=== PATIENT | female | born 1960 | race Caucasian/White ===

== ENCOUNTER 2024-08-16 05:15 | Emergency (ER) | payer MEDICAID ==
[~2024-08-16] VITALS: Ht 167.6 cm; Wt 109.7 kg
[2024-08-16 05:18] VITALS: TEMP 97.6
[2024-08-16 05:36] VITALS: BP 178/86; PULSE 83; RESP 16; O2SAT 96
[2024-08-16] MEDS ORDERED: AMOX500C2 PO (05:53)
[2024-08-16] MEDS ORDERED: KETO10PO3 TOP (05:53)
[2024-08-16] MEDS ORDERED: CLIN-214 PO (06:24)
[2024-08-16] MEDS: amoxicillin 250mg capsule PO ONE (06:26)
[2024-08-16] MEDS: clindamycin 150mg capsule PO ONE (06:45)
== END 2024-08-16 06:57 | disposition home or self-care (01) ==
LOC: ER 05:15
DX: J32.9 Chronic sinusitis, unspecified (principal); Z88.8 Allergy status to other drugs, medicaments and biological substances
CPT/HCPCS: 99283

== ENCOUNTER 2025-01-04 15:34 | Inpatient (IN) | payer MEDICAID ==
[~2025-01-04] VITALS: Ht 162.6 cm; Wt 129.7 kg
[~2025-01-04 15:34] MED LIST: CLIN-214 PO; KETO10PO3 TOP
--- NOTE | 2025-01-04 16:11 | ELECTROCARDIOGRAPH REPORT ---
[facility] Test Date: 2025-01-04 Test Time: 16:09:03 Pat Name: VAISHALI ALONZO Department: EMERGENCY ROOM Room: Gender: F Property Management Supervisor: JEOVANNY : 1960 Requested By: CODY LONG Order Number: [id number] Reading MD: Measurements Intervals [place] Rate: 100 P: 48 WY: 151 QRS: -10 QRSD: 95 T: 14 QT: 318 QTc: 411 Interpretive Statements Sinus tachycardia Anterolateral infarct, old Baseline wander in lead(s) I,III,aVL,V2,V3 Please click the below link to view image of tracing.
[2025-01-04 16:37] LABS: MEAN PLATELET VOLUME 8.9 FL (7.4-10.4); RED CELL DISTRIBUTION WIDTH 15.8 % (11.5-14.5)
[2025-01-04 16:58] LABS: CREATININE 1.03 MG/DL (0.40-0.90); PRO BRAIN NATRIURETIC PEPTIDE 59 PG/ML (0-125); TOTAL CARBON DIOXIDE 26.2 MMOL/L (24-32); eCRCL 49 ML/MIN; eGFR 54 ML/MIN
--- NOTE | 2025-01-04 17:36 | RADIOLOGY REPORT ---
EXAM: DI CHEST,SINGLE VIEW TECHNIQUE: Single frontal chest radiograph CLINICAL HISTORY: CP COMPARISON: None Findings/Impression: Frontal chest radiograph demonstrates no acute osseous or superficial soft tissue abnormalities. The trachea is midline. The cardiac silhouette and mediastinum are within normal limits. No pneumothorax, pleural effusions, or consolidations.
--- NOTE | 2025-01-04 21:03 | Physician Documentation ---
History of Present Illness ~ Chief Complaint: See Chief Complaint Stated Complaint: SEE CHIEF COMPLAINT Time Seen by MD: 20:31 Mode of Arrival: Dropped Off HPI 64-year-old female who presents with leg swelling and rashes The patient is a challenging historian, but reports having acutely worsening chronic leg swelling. She also reports having a painful red rash in multiple areas of her leg. This includes over both lateral thighs in the medial right thigh. She also has a large blister that is draining over the back of her right leg. She also has a wound over the back of her left heel. She reports having subjective fevers and chills. She denies any abdominal pain, vomiting or diarrhea. She does report intermittent dysuria. She shows me a paper, it shows she had been prescribed multiple antibiotics and Lasix in the past. However she tells me she did not take any of these med ications because she was worried there would be interactions. She is currently homeless. Tetanus witin 5 years: Yes Medication Reconciliation Allergies: Coded Allergies: niacin (Verified Allergy, Mild, HOT FLASHES, 01/04/25) Uncoded Allergies: CILLINS (Allergy, Mild, HOT FLASHES, 08/16/24) Discontinued Medications Clindamycin HCl (Clindamycin HCl CAPSULE), 2 CAP PO TID Discontinued Reason: patient no longer taking Ketoconazole (Ketoconazole), 1 APPLIC TOP BID Discontinued Reason: patient no longer taking Review of Systems Constitutional: Reports: chills, fever Integumentary: Reports: rash Physical Exam Vital Signs: Temperature: 98.2, Source: Temporal, Heart Rate: 103, Respiratory Rate: 14, BP: 165/103, Pulse Oximetry: 96, Weight: 129.700 Physical Exam General: This is a pleasant and mildly anxious appearing middle-aged woman, not in distress HEENT: Atraumatic, oropharynx is moist Heart: Mild tachycardic, appears regular Lungs: normal work of breathing, normal oxygen saturation on room air Extremities: Lower extremities: The patient has significant pitting edema to both lower extremities. She has multiple scabbed wounds scattered over her legs. She has large areas of beefy red erythema that is warm and blanching, very tender to the touch. This includes over the lateral right and left thighs, as well as a large patch over the medial right thigh extending down the back of the leg. She has a large blister over the back of the leg. She is draining clear fluid from her legs. Neuro: Alert and oriented, no focal deficits Psychiatric: Appears mildly anxious but is cooperative with exam Progress Results/Orders Results/Orders Orders - TISH QUINN MD Culture Blood (01/04/25 20:58) Page Hospitalist (01/04/25 21:52) Completed Orders - TISH QUINN MD LA (01/04/25 20:58) Furosemide Inj (Lasix Inj) (01/04/25 21:35) Medications Received in ER Medications (Trade) Dose Ordered Sig/Cortney Route PRN Reason Start Time Stop Time Status Last Admin Dose Admin (Lasix inj) 60 mg ONCE ONCE IV 01/04/25 21:35 01/04/25 21:36 DC 01/04/25 22:53 60 MG Sodium Chloride 1,000 ml @ 100 mls/hr Q10H IV 01/04/25 23:25 01/05/25 00:13 100 MLS/HR Vital Signs 01/04/25 01/04/25 01/04/25 15:48 18:52 19:35 Temp 100.5 98.2 Pulse 103 103 Resp 18 16 14 B/P (MAP) 160/90 165/103 (123) Pulse Ox 95 96 Laboratory Tests Test 01/04/25 16:15 01/04/25 18:02 01/04/25 21:10 White Blood Count 14.9 H Red Blood Count 4.87 Hemoglobin 12.9 Hematocrit 39.4 Mean Corpuscular Volume 80.8 Mean Corpuscular Hemoglobin 26.5 L Mean Corpuscular Hemoglobin Concent 32.7 L Red Cell Distribution Width 15.8 H Platelet Count 235 Mean Platelet Volume 8.9 Neutrophils (%) (Auto) 85.8 H Lymphocytes (%) (Auto) 7.9 L Monocytes (%) (Auto) 5.4 Eosinophils (%) (Auto) 0.6 Basophils (%) (Auto) 0.3 Neutrophils # (Auto) 12.8 H Lymphocytes # (Auto) 1.2 Monocytes # (Auto) 0.8 Eosinophils # (Auto) 0.1 Basophils # (Auto) 0.0 CBC Comment Sodium Level 133 L Potassium Level 3.3 L Chloride Level 100 Carbon Dioxide Level 26.2 Anion Gap 7 L Blood Urea Nitrogen 13 Creatinine 1.03 H Estimated GFR/1.73 m2 54 BUN/Creatinine Ratio 12.6 Glucose Level 113 H Hemoglobin A1c 6.2 Calcium Level 8.6 Troponin I High Sensitivity 4 < 4 L Pro-B-Type Natriuretic Peptide 59 Albumin 2.6 L Procalcitonin 1.38 H Chemistry Comments Troponin I High Sens Percent Delta Troponin I Hi Sens Absolute Change Lactic Acid Level 1.3 Microbiology Date/Time Source Procedure Growth Status 01/04/25 21:51 Blood Arm Right Blood Culture - Preliminary NEGATIVE (LESS THAN 24 HOURS) Resulted Consults/PCP Consults/PCP : Additional Comment Consult: I spoke to the internal medicine service, for admission in the hospital Medical Decision Making Additional Comment Differential includes cellulitis, fungal infection, drug rash, dehydration, sepsis, lymphedema, CHF, UTI Assessment The patient presents with significant lower extremity edema as well as a painful rash on her legs. On exam she has findings concerning for cellulitis or other significant infection to her legs. Her workup was otherwise unrevealing, no evidence of congestive heart failure or primary heart related problem. Blood cu ltures are pending. She will be given IV Lasix and admitted to the medicine service for IV antibiotics and further treatment. Departure Impression: Primary Impression: Bilateral lower extremity edema Additional Impression: Cellulitis, leg Referrals: NO PRIMARY CARE PROVIDER (PCP) Signature Scribe Signature: na Attestation: TISH Khan MD Jan 04, 2025 21:03
[2025-01-04] MEDS: furosemide 10 MG/1 ML 10ml inj IV ONE (22:53)
[2025-01-04] MEDS ORDERED: magnesium sulf-water 2g/50mL 50 ML IV PRN (23:25)
[2025-01-04] MEDS ORDERED: ondansetron/PF 4mg/2ml inj IV PRN (23:25)
[2025-01-04] MEDS ORDERED: magnesium Cl slow-release 64mg tablet PO PRN (23:25)
[2025-01-04] MEDS ORDERED: potassium Cl 40MEQ/1/2NS 520ml 520 ML IV PRN (23:25)
[2025-01-04] MEDS ORDERED: magnesium hydroxide 30ml (MOM) UD suspension PO PRN (23:25)
[2025-01-04] MEDS ORDERED: magnesium sulf-water 4G/100mL 100 ML IV PRN (23:25)
[2025-01-04] MEDS ORDERED: mag hydrox/Alum hydrox/simeth 30ml oral suspension PO PRN (23:25)
[2025-01-04] MEDS ORDERED: potassium Cl 20 mEq SR tablet PO PRN (23:25)
--- NOTE | 2025-01-04 23:38 | HISTORY AND PHYSICAL-Residence ---
History & Physical Providers to CC Resident Creating Document: MAX MACHUCA RES ~ History of Present Illness Reason for Admit\Complaint: Bilateral lower extremity cellulitis-worse in the right History of Present Illness This 64-year-old female presented to the ER with a chief concern of worsening bilateral lower extremity wounds. She lives with her in a truck. States that she had multiple wound infections in the past but has never used any medications for it. Usually feels itchy, she scratches and develops infections but later self-resolves. But, this time she has wounds on her bilateral legs and also significant erythema on her posterior surface of right thigh with a 2 cm in diameter big blister which is tender to touch. She also has erythema on her left thigh but not as significant as the right. Also complains of fever with chills that she noticed today. So, came to the ER. Denies any nausea, vomiting, chest pain, shortness of breath, constipation or diarrhea, dysuria. States that she only gets erythematous lesions in her bilateral inguinal region, and also in her inframammary creases. Never used any medications or topical antifungals for it. States that she used some homeopathic spray for it. Denies any history of IV drug abuse. Denies taking any medications at home. She is not a very good historian. Allergies: Coded Allergies: niacin (Verified Allergy, Mild, HOT FLASHES, 01/04/25) Uncoded Allergies: CILLINS (Allergy, Mild, HOT FLASHES, 08/16/24) Home Medications Home Medications Active Past Medical History Past Medical History Denies any past medical history and denies using any medications at home Past Surgical History Surgical History Comment Denies any surgical history Past Social History Social History Comment States that she quit smoking about 20 years back smoked about half to one pack of cigarettes per day for few years. Occasionally drinks alcohol. Denies abusing any other recreational drugs. ROS ROS Constitutional: Fever with chills present. No dizziness, weakness, weight gain or loss Eyes: No pain, erythema, discharge, blurring of vision ENT: No sore throat, epistaxis, tinnitus Cardiovascular: No chest pain, chest pressure, chest discomfort, palpitations, syncope, lower extremity edema, paroxysmal nocturnal dyspnea Respiratory: No shortness of breath, cough, hemoptysis Gastrointestinal: Normal appetite. No nausea, vomiting, diarrhea, constipation, hematemesis, abdominal pain, bloating, melena or fresh blood Genitourinary: No frequency, urgency, nocturia, hematuria or dysuria Musculoskeletal: No arthralgias or myalgias Integumentary: Significant bilateral lower extremity edema. Erythema, tenderness on bilateral medial thighs. Significant erythema in the posterior surface of right thigh with multiple small blisters and also one big blister- about 2 cm in diameter. Also has about 0.5 cm in diameter circular superficial ulcers on bilateral lower legs. Neurologic: No headache, neck pain, numbness or tingling of the extremities, weakness Psychiatric: No delusions, depression, loss of interest in normal activity or change in sleep pattern, hallucinations, suicidal ideations Endocrine: No fatigue, weakness, polydipsia, polyuria, change in appetite, heat or cold intolerance, sweating, dry skin Hematological: No bleeding, petechiae, bruising Allergies: No asthma or urticaria Constitutional: Reports: chills, fever Integumentary: Reports: rash Exam Vitals: Vital Signs Date Time Temp Pulse Resp B/P (MAP) Pulse Ox O2 Delivery O2 Flow Rate FiO2 01/04/25 19:35 14 01/04/25 18:52 98.2 103 96 General: Alert and oriented x4 HEENT: Normocephalic and atraumatic. Pupils equal round reactive to light and accommodation. Extraocular movements intact. Oral and nasal mucosa moist Neck: Trachea is in midline. No masses or JVD Chest: Bilateral normal breath sounds. No crackles, rhonchi or wheezes. Mild erythema in the inframammary creases Cardiovascular: Regular rate and rhythm. S1-S2 normal. No rubs or murmurs Abdomen: Soft, nontender nondistended. Bowel sounds present. Extremities: Significant bilateral lower extremity edema. Erythema, tenderness on bilateral medial thighs. Significant erythema in the posterior surface of right thigh with multiple small blisters and also one big blister-about 2 cm in diameter. Also has about 0.5 cm in diameter circular superficial ulcers on bilateral legs. Bilateral 3+ pedal edema. No cyanosis or clubbing Central Nervous System: No gross sensory or motor deficits. CN II to XII grossly intact Skin: Erythema, tenderness on bilateral medial thighs. Significant erythema in the posterior surface of right thigh with multiple small blisters and also one big blister-about 2 cm in diameter. Also has about 0.5 cm in diameter circular superficial ulcers on bilateral legs Diagnostic Data Last Recorded Lab Results: 01/04/25 1615 01/04/25 161 Advance Care Planning Advanced Care plannin - 30 Minutes Additional Plan Sepsis secondary to Bilateral lower extremity cellulitis-worse in the right Multiple blisters with a big blister on the posterior surface of right thigh Elevated WBC, fever ER physician give 60 mg IV Lasix Her bilateral lower extremity edema likely due to cellulitis/lymphedema Started cefepime 2 g IV q.12h(renal dosing) on vancomycin and metronidazole 500 mg IV q.8h Blood cultures and wound cultures ordered Ordered 1 L normal saline bolus Started normal saline at 100 cc/hour Procalcitonin ordered Lactic acid normal Ordered bilateral lower extremity CT HbA1c ordered. Patient denies any history of diabetes Mild hyponatremia Continue normal saline at 100 cc/hour Also ordered 1 L normal saline bolus Hypokalemia Replacement as per protocol Possible underlying CKD BUN 13 and creatinine 1.03. EGFR 54 Continue IV fluids Morbid Obesity Advised good dietary and lifestyle changes # pending HbA1c, lipid panel, UA and urine tox DVT prophylaxis: Protonix 40 mg subcutaneous daily Diet: Regular diet Max Machuca MD Internal Medicine Resident, PGY 3 Pt was seen and discussed with the resident team Extensive cellulitis and wounds to lower extremity I agree with assessment and plan as documented by Dr Machuca and I suggest social work consult OK to do Vanc, Clinda and Cefepime initially and narrow down with clinical response Thank you Date of Service: Jan 05, 2025 Billing Provider: AYAKA VUONG MD, MANOJNA RES Jan 04, 2025 23:38 AYAKA VUONG MD Jan 05, 2025 04:54
[2025-01-05] VITALS (8 sets, daily range): BP systolic 115–151; BP diastolic 44–84; PULSE 83–116; RESP 18–22; TEMP 97–99.9; O2SAT 94–100
[2025-01-05] MEDS: normal saline 1000ml 1,000 ML IV SCH (00:13)
[2025-01-05] MEDS: metroNIDAZOLE-Flagyl 500mg/NS 100 ML IV SCH (00:13)
[2025-01-05] MEDS: normal saline 1000ml 1,000 ML IV ONE (01:18)
[2025-01-05] MEDS: VANCOMYCIN/H2O 1.5g/300mL PB 300 ML IV ONE ×2 (01:18→01:19)
[2025-01-05] MEDS: CEFEPIME 2gm in D5W 50mL 50 ML IV ONE (02:55)
[2025-01-05] MEDS: CEFEPIME 2gm in D5W 50mL 100 ML IV SCH (03:02)
[2025-01-05 05:38] LABS: MEAN PLATELET VOLUME 9.7 FL (7.4-10.4); RED CELL DISTRIBUTION WIDTH 15.6 % (11.5-14.5)
[2025-01-05 05:51] LABS: APTT 30 SECONDS (22-32); INR 1.1 INR
[2025-01-05 06:08] LABS: BANDS% (MANUAL) 4.0 % (0-10); LYMPHOCYTES % (MANUAL) 6.0 % (21-51); MONOCYTES % (MANUAL) 5.0 % (2-12); NEUTROPHILS % (MANUAL) 85.0 % (42-75)
[2025-01-05 06:10] LABS: PLATELET ESTIMATE NORMAL
[2025-01-05 06:25] LABS: CHOL/HDL RATIO 4.6 (0.00-4.99); CREATININE 0.94 MG/DL (0.40-0.90); LDL CHOLESTEROL 90 MG/DL (50-100); TOTAL CARBON DIOXIDE 22.9 MMOL/L (24-32); eCRCL 54 ML/MIN; eGFR 60 ML/MIN
[2025-01-05 06:29] LABS: PHOSPHORUS 2.6 MG/DL (2.3-4.5)
[2025-01-05] MEDS: K and/or MAG REPLACEMENT MC SCH (07:27)
[2025-01-05] MEDS: lactobacillus rhamnosus 10,000 MMU CELLS/CAPSULE PO SCH (07:35)
[2025-01-05] MEDS ORDERED: iohexol 300mg/ml 100ml inj. ONE (10:32)
--- NOTE | 2025-01-05 11:29 | RADIOLOGY REPORT ---
CT CT LOWER EXTREMITY W/ IV CONTRAST INDICATION: Bilateral lower extremity cellulitis EXAM DATE: 01/05/2025 10:53 AM COMPARISON: None RADIATION DOSE: CTDIvol: 11 mGy, DLP: 1042 mGy*cm PROCEDURE: Helical CT images were obtained of the Bilateral lower legs with intravenous contrast. Sa gittal and coronal reconstructions are provided. ADDITIONAL IMAGES: None FINDINGS: BONES: No fracture.Normal anatomic alignment. JOINT SPACES: Maintained. No joint effusion. SOFT TISSUES: Bilateral lower extremity edema with skin thickening could be cellulitis. VESSELS: unremarkable. IMPRESSION: Bilateral lower extremity edema with skin thickening could be cellulitis. No focal fluid collection s een. No acute fracture seen.
--- NOTE | 2025-01-05 12:42 | PROGRESS NOTE- Residence ---
Progress Note - Resident Providers to CC Resident Creating Document: LEEANN HAMILTON RES ~ Antibiotic Timeout Antibiotic Ordered?: Yes If Yes, Indications: Cellulitis If Yes, Anticipated Duration?: 7 days Subjective Patient is seen and examined at the bedside. Patient states severe lower extremity pain throughout her lesions. Patient is able to tolerate diet. Patient denies any other complaints. Objective Vital Signs Date Time Temp Pulse Resp B/P (MAP) Pulse Ox O2 Delivery O2 Flow Rate FiO2 01/05/25 10:00 99.9 87 18 115/84 (94) 95 Room Air Result Diagram: 01/05/25 0450 01/05/25 0450 General: Alert and oriented x4 HEENT: Normocephalic and atraumatic. Pupils equal round reactive to light and accommodation. Extraocular movements intact. Oral and nasal mucosa moist Neck: Trachea is in midline. No masses or JVD Chest: Bilateral normal breath sounds. No crackles, rhonchi or wheezes. Mild erythema in the inframammary creases Cardiovascular: Regular rate and rhythm. S1-S2 normal. No rubs or murmurs Abdomen: Soft, nontender nondistended. Bowel sounds present. Extremities: Significant bilateral lower extremity edema. Erythema, tenderness on bilateral medial thighs. Significant erythema in the posterior surface of right thigh with multiple small blisters and 3 big blister-about 2 cm in diameter. Also has about 0.5 cm in diameter circular superficial ulcers on bilateral legs. Bilateral 3+ pedal edema. No cyanosis or clubbing Central Nervous System: No gross sensory or motor deficits. CN II to XII grossly intact Lower extremity CT without contrast 01/06/24: Bilateral lower extremity edema with skin thickening could be cellulitis. No focal fluid collection seen. No acute fracture seen. Laboratory Tests Test 01/04/25 16:15 01/04/25 18:02 01/04/25 21:10 01/05/25 04:50 White Blood Count 14.9 X10'3 20.0 X10'3 Red Blood Count 4.87 X10'6 4.61 X10'6 Hemoglobin 12.9 g/dl 12.5 g/dl Hematocrit 39.4 % 37.2 % Mean Corpuscular Volume 80.8 FL 80.6 FL Mean Corpuscular Hemoglobin 26.5 PG 27.1 PG Mean Corpuscular Hemoglobin Concent 32.7 g/dL 33.6 g/dL Red Cell Distribution Width 15.8 % 15.6 % Platelet Count 235 X10'3 228 X10'3 Mean Platelet Volume 8.9 FL 9.7 FL Neutrophils (%) (Auto) 85.8 % % Lymphocytes (%) (Auto) 7.9 % % Monocytes (%) (Auto) 5.4 % % Eosinophils (%) (Auto) 0.6 % % Basophils (%) (Auto) 0.3 % % Neutrophils # (Auto) 12.8 X10'3 X10'3 Lymphocytes # (Auto) 1.2 X10'3 X10'3 Monocytes # (Auto) 0.8 X10'3 X10'3 Eosinophils # (Auto) 0.1 X10'3 X10'3 Basophils # (Auto) 0.0 X10'3 X10'3 CBC Comment Sodium Level 133 MMOL/L 132 MMOL/L Potassium Level 3.3 MMOL/L 3.5 MMOL/L Chloride Level 100 MMOL/L 97 MMOL/L Carbon Dioxide Level 26.2 MMOL/L 22.9 MMOL/L Anion Gap 7 12 Blood Urea Nitrogen 13 MG/DL 11 MG/DL Creatinine 1.03 MG/DL 0.94 MG/DL Estimated GFR/1.73 m2 54 ML/MIN 60 ML/MIN BUN/Creatinine Ratio 12.6 11.7 Glucose Level 113 MG/DL 106 MG/DL Hemoglobin A1c 6.2 % Calcium Level 8.6 MG/DL 7.6 MG/DL Troponin I High Sensitivity 4 ng/L < 4 ng/L Pro-B-Type Natriuretic Peptide 59 PG/ML Albumin 2.6 G/DL 2.1 G/DL Procalcitonin 1.38 NG/ML Chemistry Comments Troponin I High Sens Percent Delta % Troponin I Hi Sens Absolute Change ng/L Lactic Acid Level 1.3 MMOL/L Differential Total Cells Counted 100 Neutrophils % (Manual) 85.0 % Band Neutrophils % 4.0 % Lymphocytes % (Manual) 6.0 % Monocytes % (Manual) 5.0 % Toxic Granulation 1+ Toxic Vacuolation Few Platelet Estimate Normal Red Blood Cell Morphology Perf Polychromasia Few Basophilic Stippling Anisocytosis Few Prothrombin Time 10.9 SECONDS INR International Normalized Ratio 1.1 INR Activated Partial Thromboplast Time 30 SECONDS Coagulation Comments Phosphorus Level 2.6 MG/DL Magnesium Level 2.1 MG/DL Total Bilirubin 0.7 MG/DL Aspartate Amino Transf (AST/SGOT) 38 U/L Alanine Aminotransferase (ALT/SGPT) 38 U/L Alkaline Phosphatase 152 IU/L C-Reactive Protein 9.35 MG/DL Total Protein 6.9 G/DL Globulin 4.8 G/DL Albumin/Globulin Ratio 0.4 Triglycerides Level 69 MG/DL Cholesterol Level 143 MG/DL LDL Cholesterol 90 MG/DL HDL Cholesterol 31 MG/DL Cholesterol/HDL Ratio 4.6 Coagulation Studies Laboratory Tests Test 01/05/25 04:50 Prothrombin Time 10.9 SECONDS (9.0-12.0) INR International Normalized Ratio 1.1 INR Activated Partial Thromboplast Time 30 SECONDS (22-32) Coagulation Comments Assessment Assessment The patient presents with significant lower extremity edema as well as a painful rash on her legs. On exam she has findings concerning for cellulitis or other significant infection to her legs. Her workup was otherwise unrevealing, no evidence of congestive heart failure or primary heart related problem. Blood cultures are pending. Plan Plan Sepsis secondary to Bilateral lower extremity cellulitis-worse in the right Multiple blisters with 3 big blisters on the posterior surface of right thigh Elevated WBC, fever ER physician give 60 mg IV Lasix Her bilateral lower extremity edema likely due to cellulitis/lymphedema Started cefepime 2 g IV q.12h(renal dosing) on vancomycin and metronidazole 500 mg IV q.8h Blood cultures and wound cultures ordered Ordered 1 L normal saline bolus Started normal saline at 100 cc/hour Procalcitonin ordered Lactic acid normal Ordered bilateral lower extremity CT HbA1c ordered. Patient denies any history of diabetes 01/05/2025 We will continue cefepime, vancomycin and clindamycin Blood culture: No growth in 1 day Hydration with normal saline at 100 mL/hr Culturelle 26920 MMU p.o. b.i.d. Procalcitonin 1.38 A1c 6.2 Mild hyponatremia Continue normal saline at 100 cc/hour Monitor symptoms Possible underlying CKD BUN 13 and creatinine 1.03. EGFR 54 01/05/25 BUN 11, creatinine 0.94, GFR 60 Hydration with NS at 100 mL/hr Avoid nephrotoxic medication Morbid Obesity Advised good dietary and lifestyle changes Code Status: Full code DVT prophylaxis: Lovenox Analgesia/sedation: Morphine/[place] Line/tube: PIV GI prophylaxis: None Nutrition: Regular diet Prognosis: Guarded Disposition: Continue medical treatment. Date of Service: Jan 05, 2025 Billing Provider: JOSEF GONZALES MD Common Visit Codes: [id number] INP/OBS CARE(HIGH) LEEANN HAMILTON, RES Jan 05, 2025 12:42 JOSEF GONZALES MD Jan 05, 2025 13:20
[2025-01-05] MEDS: CEFEPIME 2gm in D5W 50mL 50 ML IV SCH (12:44)
[2025-01-05] MEDS: VANCOmycin 1250MG/NS 250ml Bag 250 ML IV SCH (13:26)
[2025-01-05] MEDS ORDERED: vancomycin/NS 1 GM ADD-VANTAGE 250 ML IV SCH (14:00)
[2025-01-05] MEDS ORDERED: NO HOME MEDS (15:49)
[2025-01-05] MEDS: enoxaparin 40mg/0.4ml syringe SQ SCH (19:59)
[2025-01-06 05:54] LABS: MEAN PLATELET VOLUME 9.0 FL (7.4-10.4); RED CELL DISTRIBUTION WIDTH 16.1 % (11.5-14.5)
[2025-01-06 06:00] VITALS: BP 116/64; PULSE 73; RESP 16; TEMP 98.3; O2SAT 96
[2025-01-06 06:27] LABS: CREATININE 0.86 MG/DL (0.40-0.90); PHOSPHORUS 3.0 MG/DL (2.3-4.5); TOTAL CARBON DIOXIDE 25.5 MMOL/L (24-32); eCRCL 59 ML/MIN; eGFR 67 ML/MIN
[2025-01-06] MEDS: potassium Cl 20 mEq SR tablet PO PRN (07:53)
[2025-01-06 08:00] VITALS: RESP 16; O2SAT 96
[2025-01-06] MEDS: VANCOMYCIN LEVEL IV ONE (12:43)
--- NOTE | 2025-01-06 14:42 | PROGRESS NOTE- Residence ---
Progress Note - Resident Providers to CC Resident Creating Document: LEEANN HAMILTON RES ~ Antibiotic Timeout Antibiotic Ordered?: No Subjective Patient is seen and examined at the bedside. Patient continues to have severe bilateral lower extremity, nonresponsive to opioids. Patient is today anxious and concerned about her condition. Patient is able to tolerate diet. No overnight events reported. Objective Vital Signs Date Time Temp Pulse Resp B/P (MAP) Pulse Ox O2 Delivery O2 Flow Rate FiO2 01/06/25 12:19 16 01/06/25 08:00 96 Room Air 01/06/25 06:00 98.3 73 116/64 (81) Result Diagram: 01/06/2543701/06/25437 General: Alert and oriented x4 HEENT: Normocephalic and atraumatic. Pupils equal round reactive to light and accommodation. Extraocular movements intact. Oral and nasal mucosa moist Neck: Trachea is in midline. No masses or JVD Chest: Bilateral normal breath sounds. No crackles, rhonchi or wheezes. Mild erythema in the inframammary creases Cardiovascular: Regular rate and rhythm. S1-S2 normal. No rubs or murmurs Abdomen: Soft, nontender nondistended. Bowel sounds present. Extremities: Significant bilateral lower extremity edema. Erythema, tenderness on bilateral medial thighs. Significant erythema in the posterior surface of right thigh with multiple small blisters and one ruptured blister-about 2 cm in diameter. Also has about 0.5 cm in diameter circular superficial ulcers on bilateral legs. Bilateral 3+ pedal edema. No cyanosis or clubbing. Noted increasing of the edema towards the right gluteus. Central Nervous System: No gross sensory or motor deficits. CN II to XII grossly intact Lower extremity CT without contrast 01/06/24: Bilateral lower extremity edema with skin thickening could be cellulitis. No focal fluid collection seen. No acute fracture seen. Coagulation Studies Laboratory Tests Test 01/05/25 04:50 Prothrombin Time 10.9 SECONDS (9.0-12.0) INR International Normalized Ratio 1.1 INR Activated Partial Thromboplast Time 30 SECONDS (22-32) Coagulation Comments Assessment Assessment The patient presents with significant lower extremity edema as well as a painful rash on her legs. On exam she has findings concerning for cellulitis or other significant infection to her legs. Her workup was otherwise unrevealing, no evidence of congestive heart failure or primary heart related problem. Blood cultures are pending. Plan Plan Sepsis secondary to Bilateral lower extremity cellulitis-worse in the right Multiple blisters with 3 big blisters on the posterior surface of right thigh Elevated WBC, fever ER physician give 60 mg IV Lasix Her bilateral lower extremity edema likely due to cellulitis/lymphedema Started cefepime 2 g IV q.12h(renal dosing) on vancomycin and metronidazole 500 mg IV q.8h Blood cultures and wound cultures ordered Ordered 1 L normal saline bolus Started normal saline at 100 cc/hour Procalcitonin ordered Lactic acid normal Ordered bilateral lower extremity CT HbA1c ordered. Patient denies any history of diabetes 01/05/2025 We will continue cefepime, vancomycin and clindamycin Blood culture: No growth in 1 day Hydration with normal saline at 100 mL/hr Culturelle 17125 MMU p.o. b.i.d. C-reactive protein 9.35 Procalcitonin 1.38 A1c 6.2 01/06/2025 WBC 15.0 (neutrophils 11.1, lymphocytes 2.2) Blood culture: No growth after 2 days We will discontinue cefepime and clindamycin We will continue vancomycin Mild hyponatremia Sodium 130 at admission Continue normal saline at 100 cc/hour Monitor symptoms 01/06/25 Sodium 136 today Discontinued normal saline Possible NETO due to sepsis - resolved BUN 13 and creatinine 1.03. EGFR 54 01/05/25 BUN 11, creatinine 0.94, GFR 60 Hydration with NS at 100 mL/hr Avoid nephrotoxic medication 01/06/25 BUN 12, Creatinine 0.86 Discontinued normal saline Morbid Obesity Advised good dietary and lifestyle changes Code Status: Full code DVT prophylaxis: Lovenox Analgesia/sedation: Morphine/[place] Line/tube: PIV GI prophylaxis: None Nutrition: Regular diet Prognosis: Guarded Disposition: Continue medical treatment. Date of Service: Jan 06, 2025 Billing Provider: GONZÁLEZ SIFUENTES MD Common Visit Codes: [id number] INP/OBS CARE(HIGH) LEEANN HAMILTON, RES Jan 06, 2025 14:42 GONZÁLEZ SIFUENTES MD Jan 07, 2025 07:47
[2025-01-06 19:44] VITALS: BP 146/97; PULSE 94; RESP 16; TEMP 98.4; O2SAT 87
[2025-01-06 20:30] VITALS: RESP 18; O2SAT 87
[2025-01-07] VITALS (7 sets, daily range): BP systolic 126–144; BP diastolic 57–71; PULSE 74–90; RESP 15–18; TEMP 97.6–98.9; O2SAT 95–99
[2025-01-07 05:01] LABS: MEAN PLATELET VOLUME 8.3 FL (7.4-10.4); RED CELL DISTRIBUTION WIDTH 16.3 % (11.5-14.5)
[2025-01-07 05:10] LABS: APTT 31 SECONDS (22-32); INR 1.0 INR
[2025-01-07 05:15] LABS: CREATININE 0.97 MG/DL (0.40-0.90); PHOSPHORUS 3.6 MG/DL (2.3-4.5); TOTAL CARBON DIOXIDE 26.0 MMOL/L (24-32); eCRCL 52 ML/MIN; eGFR 58 ML/MIN
[2025-01-07 08:55] LABS: BANDS% (MANUAL) 3.0 % (0-10); EOSINOPHILS % (MANUAL) 3.0 % (0-6); LYMPHOCYTES % (MANUAL) 22.0 % (21-51); METAMYLEOCYTES% (MANUAL) 2.0 % (0-0); MONOCYTES % (MANUAL) 10.0 % (2-12); NEUTROPHILS % (MANUAL) 60.0 % (42-75); PLATELET ESTIMATE NORMAL
--- NOTE | 2025-01-07 11:39 | PROGRESS NOTE- Residence ---
Progress Note - Resident Providers to CC Resident Creating Document: LEEANN HAMILTON RES ~ Antibiotic Timeout Antibiotic Ordered?: Yes If Yes, Indications: Extensive cellulitis If Yes, Anticipated Duration?: 5 days Subjective Patient is seen and examined at the bedside. Patient continues to have severe bilateral lower extremity, less intense than yesterday. She mentions occasional epigastric pain after eating. No other complaint at this moment. Objective Vital Signs Date Time Temp Pulse Resp B/P (MAP) Pulse Ox O2 Delivery O2 Flow Rate FiO2 01/07/25 06:00 97.6 74 15 126/70 (88) 98 Room Air Result Diagram: 01/07/2544601/07/257 General: Alert and oriented x4 HEENT: Normocephalic and atraumatic. Pupils equal round reactive to light and accommodation. Extraocular movements intact. Oral and nasal mucosa moist Neck: Trachea is in midline. No masses or JVD Chest: Bilateral normal breath sounds. No crackles, rhonchi or wheezes. Mild erythema in the inframammary creases Cardiovascular: Regular rate and rhythm. S1-S2 normal. No rubs or murmurs Abdomen: Soft, nontender nondistended. Bowel sounds present. Extremities: Significant bilateral lower extremity edema. Erythema, tenderness on bilateral medial thighs. Significant erythema in the posterior surface of right thigh with multiple small blisters and one ruptured blister-about 2 cm in diameter. Today the erythema and tenderness is less intense than yesterday. Also has about 0.5 cm in diameter circular superficial ulcers on bilateral legs. Bilateral 1+ pedal edema. No cyanosis or clubbing. Central Nervous System: No gross sensory or motor deficits. CN II to XII grossly intact Lower extremity CT without contrast 01/06/24: Bilateral lower extremity edema with skin thickening could be cellulitis. No focal fluid collection seen. No acute fracture seen. Coagulation Studies Laboratory Tests Test 01/07/25 04:47 Prothrombin Time 10.7 SECONDS (9.0-12.0) INR International Normalized Ratio 1.0 INR Activated Partial Thromboplast Time 31 SECONDS (22-32) Coagulation Comments Assessment Assessment The patient presents with significant lower extremity edema as well as a painful rash on her legs. On exam she has findings concerning for cellulitis, now being treated with vancomycin. Her workup was otherwise unrevealing, no evidence of congestive heart failure or primary heart related problem. Plan Plan Sepsis secondary to Bilateral lower extremity cellulitis-worse in the right Multiple blisters with 3 big blisters on the posterior surface of right thigh Elevated WBC, fever ER physician give 60 mg IV Lasix Her bilateral lower extremity edema likely due to cellulitis/lymphedema Started cefepime 2 g IV q.12h(renal dosing) on vancomycin and metronidazole 500 mg IV q.8h Blood cultures and wound cultures ordered Ordered 1 L normal saline bolus Started normal saline at 100 cc/hour Procalcitonin ordered Lactic acid normal Ordered bilateral lower extremity CT HbA1c ordered. Patient denies any history of diabetes 01/05/2025 We will continue cefepime, vancomycin and clindamycin Blood culture: No growth in 1 day Hydration with normal saline at 100 mL/hr Culturelle 30670 MMU p.o. b.i.d. C-reactive protein 9.35 Procalcitonin 1.38 A1c 6.2 01/06/2025 WBC 15.0 (neutrophils 11.1, lymphocytes 2.2) Blood culture: No growth after 2 days We will discontinue cefepime and clindamycin We will continue vancomycin 01/07/25 WBC 12.5 (neutrophil 8.3, leukocytes 2.5) Continue on IV vancomycin Mild hyponatremia - resolved Sodium 130 at admission, now 141 Continue normal saline at 100 cc/hour Monitor symptoms Possible NETO due to sepsis - resolved BUN 13 and creatinine 1.03 at admission. Morbid Obesity Advised good dietary and lifestyle changes Code Status: Full code DVT prophylaxis: Lovenox Analgesia/sedation: Morphine/[place] Line/tube: PIV GI prophylaxis: None Nutrition: Regular diet Prognosis: Guarded Disposition: Continue medical treatment. Patient will be discharged with p.o. antibiotics after clinical improvement of the lesions. Date of Service: Jan 07, 2025 Billing Provider: GONZÁLEZ SIFUENTES MD Common Visit Codes: [id number] INP/OBS CARE(HIGH) LEEANN HAMILTON, RES Jan 07, 2025 11:39 GONZÁLEZ SIFUENTES MD Jan 07, 2025 22:24
[2025-01-07] MEDS: lactose-reduced food (Ensure High Protein) 237ml bottle PO SCH (17:30)
[2025-01-08 05:48] LABS: MEAN PLATELET VOLUME 8.3 FL (7.4-10.4); RED CELL DISTRIBUTION WIDTH 16.3 % (11.5-14.5)
[2025-01-08 06:00] VITALS: BP 137/63; PULSE 73; RESP 15; TEMP 96; O2SAT 96
[2025-01-08 06:01] LABS: INR 1.0 INR
[2025-01-08 06:12] LABS: CREATININE 1.03 MG/DL (0.40-0.90); PHOSPHORUS 3.8 MG/DL (2.3-4.5); TOTAL CARBON DIOXIDE 27.0 MMOL/L (24-32); eCRCL 49 ML/MIN; eGFR 54 ML/MIN
[2025-01-08] MEDS: CHLORHEXIDINE GLUCONATE 4% 15 ML topical sol TP SCH (08:00)
[2025-01-08 08:10] LABS: EOSINOPHILS % (MANUAL) 3.0 % (0-6); LYMPHOCYTES % (MANUAL) 15.0 % (21-51); METAMYLEOCYTES% (MANUAL) 3.0 % (0-0); MONOCYTES % (MANUAL) 11.0 % (2-12); NEUTROPHILS % (MANUAL) 68.0 % (42-75)
[2025-01-08 08:11] LABS: PLATELET ESTIMATE NORMAL
[2025-01-08 10:00] VITALS: BP 123/52; PULSE 83; RESP 16; TEMP 97.4; O2SAT 97
--- NOTE | 2025-01-08 17:03 | DISCHARGE SUMMARY-Residence ---
Discharge Summary Providers to CC Resident Creating Document: LEEANN HAMILTON RES ~ Discharge Summary Admission Diagnosis: Bilateral lower extremity cellulitis Hospital Course DATE OF ADMISSION: 01/04/2025 DATE OF DISCHARGE: 01/08/2025 Lab results at discharge Hemoglobin 12.1 WBC 10.9 Platelet count 314 Sodium 143 Potassium 3.9 BUN 14 Creatinine 1.03 A1c 6.2 Chest x-ray 01/04/2025: No acute pulmonary pathologies. Lower extremity CT 01/05/2025: Bilateral lower extremity edema with skin thickening could be cellulitis. No focal fluid collection seen. No acute fracture seen. Discharge Diagnosis\Comment: Bilateral lower extremity cellulitis Operations\Procedures: None Consultants: None Complications: None Condition on DC: Stable Discharge Summary: History of present illness 64-year-old female presented to the ER with a chief concern of worsening bilateral lower extremity wounds. She lives with her in a truck. States that she had multiple wound infections in the past but has never used any medications for it. Usually feels itchy, she scratches and develops infections but later self-resolves. However, this time she has wounds on her bilateral legs and also significant erythema on her posterior surface of right thigh with a 2 cm in diameter big blister which is tender to touch. She also has erythema on her left thigh but not as significant as the right. Also complains of fever with chills that she noticed today. So, came to the ER. Denies any nausea, vomiting, chest pain, shortness of breath, constipation or diarrhea, dysuria. States that she only gets erythematous lesions in her bilateral inguinal region, and also in her inframammary creases. Never used any medications or topical antifungals for it. States that she used some homeopathic spray for it. Denies any history of IV drug abuse. Denies taking any medications at home. Hospital course The patient presents with significant lower extremity edema as well as a painful rash on her legs. She was initially treated with cefepime, vancomycin and clindamycin, posteriorly down titrated only to vancomycin. Her workup was otherwise unrevealing, no evidence of congestive heart failure or primary heart related problem. There was significant improvement of the lesions, also reflected in the WBC count. Patient is now stable to be discharged to a post acute facility in order to finish the antibiotic course. She agrees with this decision. Discharge physical exam General: Alert and oriented x4 HEENT: Normocephalic and atraumatic. Pupils equal round reactive to light and accommodation. Extraocular movements intact. Oral and nasal mucosa moist Neck: Trachea is in midline. No masses or JVD Chest: Bilateral normal breath sounds. No crackles, rhonchi or wheezes. Mild erythema in the inframammary creases Cardiovascular: Regular rate and rhythm. S1-S2 normal. No rubs or murmurs Abdomen: Soft, nontender nondistended. Bowel sounds present. Extremities: Moderate bilateral lower extremity edema. Erythema, tenderness on bilateral medial thighs, in resolution. Moderate erythema in the posterior surface of right thigh with small blisters and one ruptured blister-about 2 cm in diameter. No cyanosis or clubbing. Central Nervous System: No gross sensory or motor deficits. CN II to XII grossly intact Discharge medications Vancomycin IV q.12 for five days Discharge course Follow-up with your PCP in one week Continue vancomycin as indicated above Continue proper wound care more Monitor for worsening of the lesions Monitor for systemic signs such as fever Call 911 or come to the emergency department this event of chest pain, shortness of breath or any concern symptom *Problems/Diagnosis: (1) Cellulitis, leg Status: Acute (2) Bilateral lower extremity edema Status: Acute Total Time Spent on D/C: Up to 30 Minutes Counseling Services Smoking & Tobacco Cessation: 3-10 Minutes Date of Service: Jan 08, 2025 Billing Provider: GONZÁLEZ SIFUENTES MD Common Visit Codes: [id number] DISCH DAY >30min LEEANN HAMILTON, RES Jan 08, 2025 16:51 GONZÁLEZ SIFUENTES MD Jan 09, 2025 07:38
[2025-01-08 18:00] VITALS: BP 159/83; PULSE 76; RESP 16; TEMP 97.6; O2SAT 96
[2025-01-08 20:10] VITALS: RESP 18
[2025-01-08 22:00] VITALS: BP 144/72; PULSE 85; RESP 19; TEMP 98; O2SAT 98
[2025-01-09 08:00] VITALS: BP 133/65; PULSE 77; RESP 16; RESP 22; TEMP 98; O2SAT 96
[2025-01-09 08:44] LABS: MEAN PLATELET VOLUME 8.1 FL (7.4-10.4); RED CELL DISTRIBUTION WIDTH 16.4 % (11.5-14.5)
[2025-01-09 08:54] LABS: INR 1.0 INR
[2025-01-09 09:00] LABS: CREATININE 1.05 MG/DL (0.40-0.90); PHOSPHORUS 4.4 MG/DL (2.3-4.5); TOTAL CARBON DIOXIDE 27.8 MMOL/L (24-32); eCRCL 48 ML/MIN; eGFR 53 ML/MIN
[2025-01-09] MEDS: HYDROcodone/acetaminophen 5mg/325mg tablet PO PRN (09:16)
[2025-01-09 10:00] VITALS: BP 136/68; PULSE 70; RESP 16; TEMP 98.2; O2SAT 96
[2025-01-09 10:16] VITALS: RESP 16
[2025-01-09 10:34] LABS: MEAN PLATELET VOLUME 8.8 FL (7.4-10.4); RED CELL DISTRIBUTION WIDTH 16.7 % (11.5-14.5)
[2025-01-09 10:59] LABS: CREATININE 1.13 MG/DL (0.40-0.90); TOTAL CARBON DIOXIDE 28.1 MMOL/L (24-32); eCRCL 45 ML/MIN; eGFR 49 ML/MIN
--- NOTE | 2025-01-09 17:01 | PROGRESS NOTE- Residence ---
Progress Note - Resident Providers to CC Resident Creating Document: LEEANN HAMILTON RES ~ Antibiotic Timeout Antibiotic Ordered?: Yes Subjective Patient is seen and examined at the bedside. Patient continues to have intermittent bilateral lower extremity, less intense than before. She also mentions small amount of blood in her stool that is not new. She refused colonoscopy before but will follow-up outpatient. No other complaint at this moment. Objective Vital Signs Date Time Temp Pulse Resp B/P (MAP) Pulse Ox O2 Delivery O2 Flow Rate FiO2 01/09/25 10:16 16 01/09/25 10:00 98.2 70 136/68 (90) 96 Room Air Result Diagram: 01/09/2533 01/09/25 0933 General: Alert and oriented x4 HEENT: Normocephalic and atraumatic. Pupils equal round reactive to light and accommodation. Extraocular movements intact. Oral and nasal mucosa moist Neck: Trachea is in midline. No masses or JVD Chest: Bilateral normal breath sounds. No crackles, rhonchi or wheezes. Mild erythema in the inframammary creases Cardiovascular: Regular rate and rhythm. S1-S2 normal. No rubs or murmurs Abdomen: Soft, nontender nondistended. Bowel sounds present. Extremities: Significant bilateral lower extremity edema. Erythema, tenderness on bilateral medial thighs. Significant erythema in the posterior surface of right thigh with multiple small blisters and one ruptured blister-about 2 cm in diameter. Today the erythema and tenderness is less intense than yesterday. Also has about 0.5 cm in diameter circular superficial ulcers on bilateral legs. Bilateral 1+ pedal edema. No cyanosis or clubbing. Central Nervous System: No gross sensory or motor deficits. CN II to XII grossly intact Lower extremity CT without contrast 01/06/24: Bilateral lower extremity edema with skin thickening could be cellulitis. No focal fluid collection seen. No acute fracture seen. Coagulation Studies Laboratory Tests Test 01/07/25 04:47 01/09/25 08:16 Activated Partial Thromboplast Time 31 SECONDS (22-32) Prothrombin Time 10.4 SECONDS (9.0-12.0) INR International Normalized Ratio 1.0 INR Coagulation Comments Assessment Assessment The patient presents with significant lower extremity edema as well as a painful rash on her legs. On exam she has findings concerning for cellulitis, now being treated with vancomycin. Her workup was otherwise unrevealing, no evidence of congestive heart failure or primary heart related problem. Plan Plan Sepsis secondary to Bilateral lower extremity cellulitis-worse in the right Multiple blisters with 3 big blisters on the posterior surface of right thigh Elevated WBC, fever ER physician give 60 mg IV Lasix Her bilateral lower extremity edema likely due to cellulitis/lymphedema Started cefepime 2 g IV q.12h(renal dosing) on vancomycin and metronidazole 500 mg IV q.8h Blood cultures and wound cultures ordered Ordered 1 L normal saline bolus Started normal saline at 100 cc/hour Procalcitonin ordered Lactic acid normal Ordered bilateral lower extremity CT HbA1c ordered. Patient denies any history of diabetes 01/05/2025 We will continue cefepime, vancomycin and clindamycin Blood culture: No growth in 1 day Hydration with normal saline at 100 mL/hr Culturelle 14660 MMU p.o. b.i.d. C-reactive protein 9.35 Procalcitonin 1.38 A1c 6.2 01/06/2025 WBC 15.0 (neutrophils 11.1, lymphocytes 2.2) Blood culture: No growth after 2 days We will discontinue cefepime and clindamycin We will continue vancomycin 01/07/25 WBC 12.5 (neutrophil 8.3, leukocytes 2.5) Continue on IV vancomycin 01/09/25 Patient was going to be discharged yesterday but was not possible because of pending insurance authorization. She will be discharged today in order to continue IV antibiotics. Mild hyponatremia - resolved Sodium 130 at admission, now 141 Continue normal saline at 100 cc/hour Monitor symptoms Possible NETO due to sepsis - resolved BUN 13 and creatinine 1.03 at admission. Morbid Obesity Advised good dietary and lifestyle changes Code Status: Full code DVT prophylaxis: Lovenox Analgesia/sedation: Morphine/[place] Line/tube: PIV GI prophylaxis: None Nutrition: Regular diet Prognosis: Guarded Disposition: Patient discharged today. Date of Service: Jan 09, 2025 Billing Provider: GONZÁLEZ SIFUENTES MD Common Visit Codes: [id number] INP/OBS CARE(HIGH) LEEANN HAMILTON, RES Jan 09, 2025 17:01 GONZÁLEZ SIFUENTES MD Jan 09, 2025 20:46
== END 2025-01-09 16:00 | DRG 720 ==
LOC: ER 15:34 → ED HOLD 23:31 → ORTHO 4S 01-05 02:15
PROVIDERS: ADMIT Internal Medicine; ATTEND Internal Medicine
PROC: BQ2S1ZZ Computerized Tomography (CT Scan) of Left Lower Extremity using Low Osmolar Contrast (ICD-10-PCS; principal; 2025-01-05)
PROC: BQ2R1ZZ Computerized Tomography (CT Scan) of Right Lower Extremity using Low Osmolar Contrast (ICD-10-PCS; 2025-01-05)
DX: A41.9 Sepsis, unspecified organism (principal); N17.9 Acute kidney failure, unspecified; E87.1 Hypo-osmolality and hyponatremia; L03.115 Cellulitis of right lower limb; L03.116 Cellulitis of left lower limb; E66.01 Morbid (severe) obesity due to excess calories; E87.6 Hypokalemia; S70.321A Blister (nonthermal), right thigh, initial encounter; X58.XXXA Exposure to other specified factors, initial encounter; Y93.89 Activity, other specified; Y92.89 Other specified places as the place of occurrence of the external cause; Y99.8 Other external cause status; Z88.8 Allergy status to other drugs, medicaments and biological substances; Z68.42 Body mass index [BMI] 45.0-49.9, adult
CPT/HCPCS: 36415; 71045; 73701; 80048; 80053; 80061; 80202; 83036; 83605; 83735; 83880; 84100; 84145; 84484; 85007; 85025; 85610; 85730; 86140; 87040; 87081; 93005; 96365; 97116; 97161; 97530; 99285; A6222; A6258; G0378; J0692; J1650; J1938; J2270; J3370; J3372; J3490; J7030; Q9967